=== PATIENT | male | born 1935 | race Caucasian/White ===

== ENCOUNTER → 2020-10-31 | Day surgery (SDC) | payer MEDICARE ==
[~2020-10-31] MED LIST: DAILY VITE1 EACH PO; FLOMAX0.4 MG PO; LEVOTHYROXINE25 MC1 PO; VITAMIN B122500 MCG PO; VITAMIN E400 UNI1 PO
== END | disposition home or self-care (01) ==
LOC: FAS 12:18
DX: H25.812 Combined forms of age-related cataract, left eye (principal); E03.9 Hypothyroidism, unspecified; Z98.890 Other specified postprocedural states; Z20.822 Contact with and (suspected) exposure to COVID-19
CPT/HCPCS: J2250; V2632

== ENCOUNTER → 2020-11-28 | Day surgery (SDC) | payer MEDICARE | END | disposition home or self-care (01) | LOC: FAS 11:46 | DX: H25.13 Age-related nuclear cataract, bilateral (principal); H02.403 Unspecified ptosis of bilateral eyelids; E03.9 Hypothyroidism, unspecified; M19.90 Unspecified osteoarthritis, unspecified site; Z20.822 Contact with and (suspected) exposure to COVID-19; Z98.890 Other specified postprocedural states | CPT/HCPCS: J2250; V2632 ==

== ENCOUNTER 2021-04-04 09:09 | Emergency (ER) | payer MEDICARE | END 2021-04-04 10:30 | disposition home or self-care (01) | LOC: FER 09:09 | DX: T63.441A Toxic effect of venom of bees, accidental (unintentional), initial encounter (principal); Z88.1 Allergy status to other antibiotic agents | CPT/HCPCS: 99283 ==